=== PATIENT | female | born 1975 | race Caucasian/White ===

== ENCOUNTER → 2022-09-17 | Outpatient (CLI) | payer OTHER, MEDICAID ==
[~2022-09-17] MED LIST: ALPR0.5T PO; CETI10TA17; CYCL10TA9 PO; DULO30CA48; DULO60CA58; ESTR0.3T; FURO20TA4; GABA-488; HYDR-2890 PO; HYDR25CA5 PO; LISI10TA2; PALI234D; QUET200T2; QUET400T5; RT-ALBUTEROL SULF 2.5 MG/3 ML PRE-MIX VIAL INH ONE; SIMV20TA3
== END ==
LOC: RT 09:15
PROVIDERS: ATTEND Nurse Practitioner Family
DX: J45.20 Mild intermittent asthma, uncomplicated (principal)
CPT/HCPCS: 94060; 94726; 94729